=== PATIENT | female | born 1980 | race Caucasian/White ===

== ENCOUNTER 2016-12-15 02:22 | Emergency (ER) | payer SELFPAY ==
[~2016-12-15] VITALS: Ht 165.1 cm; Wt 64.0 kg
[2016-12-15 02:33] VITALS: Ht 165.1 cm; Wt 64.0 kg
== END 2016-12-15 03:12 | disposition left against medical advice (07) ==
LOC: E/R 02:22
DX: Z53.21 Procedure and treatment not carried out due to patient leaving prior to being seen by health care provider (principal)